=== PATIENT | male | born 1950 | race Hispanic/Latino ===

== ENCOUNTER → 2016-07-04 | Outpatient (CLI) | payer BC | END | disposition home or self-care (01) | LOC: LAB.O 14:40 | PROVIDERS: ATTEND Urology | DX: R97.20 Elevated prostate specific antigen [PSA] (principal) ==

== ENCOUNTER → 2016-11-13 | Outpatient (CLI) | payer BC | LOC: CT 13:20 | DX: R19.07 Generalized intra-abdominal and pelvic swelling, mass and lump (principal) ==

== ENCOUNTER → 2016-11-14 | Outpatient (CLI) | payer BC | LOC: LAB.O 13:41 | PROVIDERS: ATTEND Urology | DX: R97.20 Elevated prostate specific antigen [PSA] (principal) ==

== ENCOUNTER → 2017-06-12 | Outpatient (CLI) | payer BC | LOC: LAB.O 13:35 | PROVIDERS: ATTEND Urology | DX: R97.20 Elevated prostate specific antigen [PSA] (principal) ==

== ENCOUNTER → 2018-06-11 | Outpatient (CLI) | payer MEDICARE | LOC: LAB.O 14:15 | PROVIDERS: ATTEND Urology | DX: R97.20 Elevated prostate specific antigen [PSA] (principal) ==

== ENCOUNTER → 2019-09-22 | Outpatient (CLI) | payer MEDICARE ==
--- NOTE | 2019-09-22 12:07 | RAD ---
EXAM DESCRIPTION: Chest,2 Views CLINICAL HISTORY: 68 years Male, MALIGNANT NEOPLASM OF PROSTATE COMPARISON: None. TECHNIQUE: 2 view radiograph of the chest. IMPRESSION: Normal size cardiac silhouette. Partially calcified aorta. Scattered basilar atelectasis. 7 mm round opacity in the far lateral right lung base probably represents the patient's nipple shadow. However, given the patient's history of prostate cancer, consider repeat chest radiograph with nipple markers versus CT chest to further evaluate and exclude malignancy. No pleural effusion or pneumothorax. Mild thoracic spondylosis. Surgical clips in the upper abdomen. Electronically signed by: James Holman MD 09/22/2019 12:06 PM CDT
== END ==
LOC: LAB.O 08:20
PROVIDERS: ATTEND Urology
DX: Z01.818 Encounter for other preprocedural examination (principal); C61 Malignant neoplasm of prostate; I70.0 Atherosclerosis of aorta; J98.11 Atelectasis; M47.894 Other spondylosis, thoracic region